=== PATIENT | male | born 1965 | race African-American/Black ===

== ENCOUNTER 2020-02-08 15:16 | Inpatient (IN) | payer SELFPAY ==
[~2020-02-08] VITALS: Ht 172.7 cm; Wt 61.7 kg
[2020-02-08 15:23] VITALS: Ht 172.7 cm; Wt 61.7 kg
[2020-02-08 16:39] LABS: BASOPHIL % 0.1 % (0-2); PLATELET COUNT 212 x10^3mcL (130-400); RED CELL DISTRIBUTION WIDTH 13.5 % (11.5-14.5)
[2020-02-08 16:45] LABS: microscopic required? NO
[2020-02-08 17:02] LABS: urine erythrocyte NEGATIVE (NEGATIVE)
[2020-02-08 17:08] LABS: T3 TOTAL 1.24 ng/mL
[2020-02-08 17:13] LABS: AMPHETAMINE QUAL UR POSITIVE (See below)
[2020-02-08 17:13] LABS: CALCIUM 9.8 mg/dL (8.5-10.1); CARBON DIOXIDE 19.4 mmol/L (21-32); CHLORIDE SERUM 102 mmol/L (98-107); CREATININE SERUM 1.2 mg/dL (0.7-1.3); GFR1 > 60 mL/min; GLUCOSE SERUM 343 mg/dL (74-106); POTASSIUM SERUM 3.9 mmol/L (3.5-5.1); SODIUM SERUM 138 mmol/L (136-145)
[2020-02-08 17:23] LABS: ALBUMIN 4.3 g/dL (3.4-5.0); ALKALINE PHOSPHATASE 90 U/L (46-116); ALT/SGPT 23 U/L (16-63); AST/SGOT 17 U/L (15-37); BILIRUBIN TOTAL 1.2 mg/dL (0.20-1.00)
[2020-02-08 17:24] LABS: TOTAL PROTEIN, SERUM 8.6 g/dL (6.4-8.2)
[2020-02-08 17:30] LABS: CK-MB 5.6 ng/mL (0-3.6); FREE T4 1.39 ng/dL (0.76-1.46); FREE THYROXINE INDEX 3.4 ug/dL (1.4-4.5); T4(THYROXINE) 9.7 ug/dL (4.7-13.3)
[2020-02-08 17:47] LABS: ERYTHROCYTE SED RATE 28 mm/hr (0-20)
[2020-02-08 18:21] LABS: CHOLESTEROL/HDL RATIO 3.5; MAGNESIUM 2.1 mg/dL (1.8-2.4); PHOSPHOROUS 2.8 mg/dL (2.5-4.9)
[2020-02-08] MEDS ORDERED: METFORMIN HCL500 M4 (19:42)
[2020-02-08 20:55] VITALS: BP 176/110
[2020-02-09] VITALS (7 sets, daily range): BP systolic 90–156; BP diastolic 51–102
[2020-02-09 08:01] LABS: BASOPHIL % 0.2 % (0-2)
[2020-02-09 08:13] LABS: CARBON DIOXIDE 25.3 mmol/L (21-32); CHLORIDE SERUM 109 mmol/L (98-107); CREATININE SERUM 1.1 mg/dL (0.7-1.3); GFR1 > 60 mL/min; GLUCOSE SERUM 230 mg/dL (74-106); MAGNESIUM 2.4 mg/dL (1.8-2.4); PHOSPHOROUS 2.6 mg/dL (2.5-4.9); POTASSIUM SERUM 3.8 mmol/L (3.5-5.1); SODIUM SERUM 143 mmol/L (136-145)
[2020-02-09 09:02] LABS: PLATELET COUNT 215 x10^3mcL (130-400); RED CELL DISTRIBUTION WIDTH 13.8 % (11.5-14.5)
[2020-02-10] VITALS (7 sets, daily range): BP systolic 86–141; BP diastolic 49–93
[2020-02-10 06:56] LABS: CALCIUM 7.9 mg/dL (8.5-10.1); CARBON DIOXIDE 26.9 mmol/L (21-32); CHLORIDE SERUM 109 mmol/L (98-107); GFR1 > 60 mL/min; GLUCOSE SERUM 136 mg/dL (74-106); MAGNESIUM 2.2 mg/dL (1.8-2.4); PHOSPHOROUS 2.5 mg/dL (2.5-4.9); POTASSIUM SERUM 3.6 mmol/L (3.5-5.1); SODIUM SERUM 143 mmol/L (136-145)
[2020-02-10 06:59] LABS: BASOPHIL % 0.3 % (0-2); PLATELET COUNT 164 x10^3mcL (130-400); RED CELL DISTRIBUTION WIDTH 13.8 % (11.5-14.5)
[2020-02-10] MEDS ORDERED: GOOD NEIGHBOR P20 M2 PO (09:18)
[2020-02-10] MEDS ORDERED: METFORMIN HCL500 M4 PO (13:21)
[2020-02-10] MEDS ORDERED: FORTAMET1000 MG PO (14:12)
[2020-02-10] MEDS ORDERED: OMEPRAZOLE20 M3 PO (14:12)
== END 2020-02-10 17:50 | disposition home or self-care (01) | DRG 71 ==
LOC: ED 15:16 → MU 17:36 → DU 02-10 03:54
PROVIDERS: Family Medicine; Specialist; ADMIT Internal Medicine; ATTEND Internal Medicine
DX: G93.41 Metabolic encephalopathy (principal); E87.2 Acidosis; E11.9 Type 2 diabetes mellitus without complications; E86.0 Dehydration; R19.7 Diarrhea, unspecified; F19.10 Other psychoactive substance abuse, uncomplicated; Z20.828 Contact with and (suspected) exposure to other viral communicable diseases; Z79.899 Other long term (current) drug therapy
CPT/HCPCS: 36600; 82962; 84439; 87046; 87046-59; C9113; G0378; G0480; J1815; J2405; J2765; J7030